=== PATIENT | female | born 2000 | race Caucasian/White ===

== ENCOUNTER 2021-09-09 19:40 | Emergency (ER) | payer BC, MEDICAID ==
[~2021-09-09] VITALS: Ht 160 cm; Wt 68.0 kg
[2021-09-09 20:30] VITALS: BP_SYST 122
--- NOTE | 2021-09-09 20:30 | NUR ---
Patient triaged and placed in waiting room. VSS and patient appears in no acute distress at this time. Accompanied by mother, awaiting available bed, and MD notified of need for MSE.
--- NOTE | 2021-09-09 22:19 | NUR ---
PATIENT BROUGHT IN COMPLAINING OF CHEST PAIN X 2 MONTHS NOW RADIATING TO LEFT ARM STARTING TODAY. DENIES ANY HX OR SX. PAIN 0/10. NO OTHER COMPLAINTS/INJURIES PER PATIENT OR NOTED.
--- NOTE | 2021-09-09 23:09 | NUR ---
ER at bedside examining patient.
[2021-09-10] MEDS ORDERED: NAPR-690 PO (00:17)
[2021-09-10 00:21] VITALS: BP_SYST 118
--- NOTE | 2021-09-10 00:21 | NUR ---
Patient given written and verbal discharge instructions and verbalizes understanding. ER MD discussed with patient the results and treatment provided. Patient in stable condition. ID arm band removed. Rx of NAPROXEN given. Patient educated on pain management and to follow up with PMD. Pain Scale 0/10 Opportunity for questions provided and answered. Medication side effect fact sheet provided.
== END 2021-09-10 00:21 | disposition home or self-care (01) ==
LOC: SED 19:40
DX: R07.89 Other chest pain (principal); Z79.899 Other long term (current) drug therapy
CPT/HCPCS: 71045; 99283

== ENCOUNTER 2023-10-02 22:57 | Emergency (ER) | payer MEDICAID ==
[~2023-10-02] VITALS: Ht 162.6 cm; Wt 63.5 kg
[~2023-10-02 22:57] MED LIST: NAPR-690 PO
[2023-10-02 23:41] VITALS: BP_SYST 119; PULSE 66; RESP 16; TEMP 98.5; O2SAT 98
[2023-10-03] MEDS ORDERED: AMOXICILLIN/POTASSIUM CLAV 875 MG TABLET PO ONE
[2023-10-03] MEDS ORDERED: DIPHTH,PERTUSS(ACELL),TET VAC 0.5 ML VIAL (Tdap) I.M. ONE
[2023-10-03] MEDS ORDERED: IBUP-1969 PO (00:18)
[2023-10-03] MEDS ORDERED: AMOX875T2 PO (00:18)
[2023-10-03 00:30] VITALS: BP_SYST 119; PULSE 66; RESP 16; TEMP 98.5; O2SAT 98
== END 2023-10-03 01:05 | disposition home or self-care (01) ==
LOC: SED 22:57
DX: S61.012A Laceration without foreign body of left thumb without damage to nail, initial encounter (principal); Z79.899 Other long term (current) drug therapy; W54.0XXA Bitten by dog, initial encounter; Y93.89 Activity, other specified; Y92.89 Other specified places as the place of occurrence of the external cause; Y99.8 Other external cause status
CPT/HCPCS: 90715; 99283